=== PATIENT | female | born 1945 | race Caucasian/White ===

== ENCOUNTER 2019-08-06 10:17 | Inpatient (IN) ==
[2019-08-06] MEDS ORDERED: CeFAZolin Syr 2,000MG/20 ML 2,000 MG/20 ML SYRINGE IVPB ONE (11:56)
[2019-08-06] MEDS ORDERED: Ringers Solution, Lactated 1,000 ML IVC SCH (12:00)
[2019-08-06] MEDS ORDERED: Ondansetron 4 MG/2 ML VIAL IVP ONE (13:16)
[2019-08-06] MEDS ORDERED: *HR* HYDROmorphone (PF) 1 MG/ML SYRINGE IVP PRN (13:16)
[2019-08-06] MEDS ORDERED: *HR* OxyCODONE ER (12 HR) 10 MG TABLET PO ONE (13:17)
[2019-08-06] MEDS ORDERED: Gabapentin 300 MG CAPSULE PO ONE (13:17)
[2019-08-06] MEDS ORDERED: *HR* Propofol 200 MG/20 ML VIAL IVP ONE (13:39)
[2019-08-06] MEDS ORDERED: *HR* FentaNYL (PF) 100 MCG/2 ML VIAL ONE ×2 (13:39→16:08)
[2019-08-06] MEDS ORDERED: Lidocaine -MPF 2% 2 ML VIAL ONE (13:51)
[2019-08-06] MEDS ORDERED: *HR* Succinylcholine 200 MG/10 ML VIAL IVP ONE (13:52)
[2019-08-06] MEDS ORDERED: *HR* Rocuronium Bromide 50 MG/5 ML VIAL ONE (13:52)
[2019-08-06] MEDS ORDERED: EPHEDrine 50 MG/ML VIAL ONE (14:49)
[2019-08-06] MEDS ORDERED: Ethanol\\Acetic Acid\\Na Ace\\Ben 1,000 ML IRRIG.SOLN IR ONE (14:53)
[2019-08-06] MEDS ORDERED: Calcium Gluconate 1,000 MG/10 ML VIAL ONE (15:18)
[2019-08-06] MEDS ORDERED: Tranexamic Acid 1,000 MG/10 ML VIAL ONE (15:34)
[2019-08-06] MEDS ORDERED: *HR* PHENYLEPHRINE 1,000 MCG/10 ML SYRINGE IVP ONE ×2 (15:36→15:50)
[2019-08-06] MEDS ORDERED: *HR* Magnesium Sulfate 1 GM/2 ML VIAL ONE (15:39)
[2019-08-06] MEDS ORDERED: Ondansetron 4 MG/2 ML VIAL ONE (16:04)
[2019-08-06] MEDS ORDERED: Dexamethasone 4 MG/ML VIAL ONE (16:04)
[2019-08-06] MEDS ORDERED: Albumin Human 5% 0 GM/0 ML VIAL ONE (16:24)
[2019-08-06 17:35] LABS: Hematocrit 25.7 % (35.3-44.9); Hemoglobin 9.1 g/dL (11.5-15.4)
[2019-08-06] MEDS ORDERED: Ibuprofen 800 MG TABLET PO PRN (18:16)
[2019-08-06] MEDS ORDERED: Naloxone 0.4 MG/ML INJ IVP PRN (18:16)
[2019-08-06] MEDS ORDERED: MOM Conc 10 ML UD.LIQ PO PRN (18:16)
[2019-08-06] MEDS ORDERED: Sennosides 8.6 MG TABLET PO PRN (18:16)
[2019-08-06] MEDS ORDERED: Ondansetron 4 MG/2 ML VIAL IVP PRN (18:16)
[2019-08-06] MEDS ORDERED: *HR* Promethazine 25 MG/ML VIAL IVP PRN (18:16)
[2019-08-06] MEDS ORDERED: *HR* OxyCODONE Immed Rel 5 MG TABLET PO PRN (18:16)
[2019-08-06] MEDS ORDERED: traMADol 50 MG TABLET PO PRN (18:16)
[2019-08-06] MEDS ORDERED: Temazepam 15 MG CAPSULE PO PRN (18:16)
[2019-08-06] MEDS: HYDROcodone BIT/Homatropine 5 MG TABLET PO PRN (18:34)
[2019-08-06] MEDS: Ringers Solution, Lactated 1,000 ML IVC SCH (18:59)
[2019-08-06] MEDS: Ascorbic Acid 500 MG TABLET PO SCH (19:00)
[2019-08-07] MEDS: Ringers Solution, Lactated 1,000 ML IVC SCH (05:09)
[2019-08-07] MEDS: Ascorbic Acid 500 MG TABLET PO SCH ×2 (08:34→16:17)
[2019-08-07] MEDS: Metoprolol XL (24 HR) Succ 50 MG TAB.ER.24H PO SCH (08:34)
[2019-08-07] MEDS: Multivit/Ca/Min/Fe/FA 1 TAB TABLET PO SCH (08:34)
[2019-08-07] MEDS: hydroCHLOROthiazide 25 MG TABLET PO SCH (08:34)
[2019-08-07] MEDS: Aspirin Enteric Coated 81 MG Tablet PO SCH (08:34)
[2019-08-07] MEDS: Cholecalciferol (D-3) 1,000 UNIT (25MCG) TABLET PO SCH (08:35)
[2019-08-07] MEDS ORDERED: NON-FORMULARY MEDICATION 1 EACH EACH (Multivitamin [Daily Multiple Vitamin] 1 TAB) PO SCH (09:00)
[2019-08-07] MEDS ORDERED: MAGNESIUM AMINO ACID CHELATE PO SCH (09:00)
[2019-08-07] MEDS: NIFEdipine XL (24 HR) 30 MG TAB.ER.24 PO SCH (09:28)
[2019-08-07] MEDS ORDERED: *HR* Enoxaparin 30 MG/0.3 ML SYRINGE SQ SCH (12:32)
[2019-08-07 14:42] LABS: Basophils % 0.1 %; Eosinophils % 0.1 %; Hematocrit 22.1 % (35.3-44.9); Hemoglobin 7.4 g/dL (11.5-15.4); Immature Granulocytes % 0.6 % (0-4); Lymphocytes # 0.6 K/mcL (0.6-4.6); Lymphocytes % 4.7 %; Mean Corpuscular HGB Conc 33.5 g/dL (31.6-35.5); Mean Corpuscular Hemoglobin 31.1 pg (28.0-33.3); Mean Corpuscular Volume 92.9 fL (83.0-100.0); Mean Platelet Volume 9.3 fL (9.4-12.4); Monocytes # 0.6 K/mcL (0.0-1.3); Monocytes % 4.1 %; Neutrophils # 12.4 K/mcL (1.6-8.9); Platelet Count 193 K/mcL (140-400); Red Blood Count 2.38 M/mcL (3.82-4.97); Segmented Neutrophils % 90.4 %; White Blood Count 13.7 K/mcL (4.3-11.1)
[2019-08-07 15:04] LABS: Calcium 8.9 mg/dL (8.6-10.3); Potassium 3.5 mEq/L (3.5-5.1)
[2019-08-07] MEDS ORDERED: Furosemide 20 MG/2 ML VIAL IVP ONE (17:09)
[2019-08-07] MEDS ORDERED: 0.9 % Sodium Chloride 250 ML IVC SCH (17:15)
[2019-08-07] MEDS: HYDROcodone BIT/Homatropine 5 MG TABLET PO PRN (23:24)
[2019-08-08 05:51] LABS: Basophils % 0.3 %; Eosinophils # 0.1 K/mcL (0.0-0.6); Eosinophils % 1.1 %; Hematocrit 25.9 % (35.3-44.9); Hemoglobin 8.9 g/dL (11.5-15.4); Lymphocytes # 0.9 K/mcL (0.6-4.6); Lymphocytes % 12.3 %; Mean Corpuscular HGB Conc 34.4 g/dL (31.6-35.5); Mean Corpuscular Hemoglobin 30.6 pg (28.0-33.3); Mean Platelet Volume 8.9 fL (9.4-12.4); Monocytes # 0.5 K/mcL (0.0-1.3); Monocytes % 6.8 %; Neutrophils # 5.6 K/mcL (1.6-8.9); Platelet Count 142 K/mcL (140-400); Red Blood Count 2.91 M/mcL (3.82-4.97); Red Cell Distribution Width 13.5 % (11.5-14.5); Segmented Neutrophils % 78.5 %; White Blood Count 7.2 K/mcL (4.3-11.1)
[2019-08-08 06:14] LABS: Calcium 8.7 mg/dL (8.6-10.3); Potassium 3.4 mEq/L (3.5-5.1)
[2019-08-08] MEDS: Metoprolol XL (24 HR) Succ 50 MG TAB.ER.24H PO SCH (07:21)
[2019-08-08] MEDS: NIFEdipine XL (24 HR) 30 MG TAB.ER.24 PO SCH (07:21)
[2019-08-08] MEDS: Multivit/Ca/Min/Fe/FA 1 TAB TABLET PO SCH (07:21)
[2019-08-08] MEDS: Ascorbic Acid 500 MG TABLET PO SCH ×2 (07:22→15:47)
[2019-08-08] MEDS: Cholecalciferol (D-3) 1,000 UNIT (25MCG) TABLET PO SCH (07:22)
[2019-08-08] MEDS: hydroCHLOROthiazide 25 MG TABLET PO SCH (07:22)
[2019-08-08] MEDS: Aspirin Enteric Coated 81 MG Tablet PO SCH (07:22)
[2019-08-08] MEDS: HYDROcodone BIT/Homatropine 5 MG TABLET PO PRN (14:13)
[2019-08-09 04:19] LABS: Hematocrit 24.3 % (35.3-44.9); Hemoglobin 8.7 g/dL (11.5-15.4); Mean Corpuscular HGB Conc 35.8 g/dL (31.6-35.5); Mean Corpuscular Hemoglobin 30.6 pg (28.0-33.3); Mean Corpuscular Volume 85.6 fL (83.0-100.0); Platelet Count 153 K/mcL (140-400); Red Blood Count 2.84 M/mcL (3.82-4.97); Red Cell Distribution Width 13.3 % (11.5-14.5)
[2019-08-09 04:37] LABS: BUN/Creatinine Ratio 22 (6-26); Blood Urea Nitrogen 17 mg/dL (8-23); Calcium 8.6 mg/dL (8.6-10.3); Carbon Dioxide 24 mEq/L (23-29); Chloride 91 mEq/L (98-107); Glucose 110 mg/dL (70-105); Osmolality,Calculated 258 (280-300); Potassium 2.9 mEq/L (3.5-5.1); Sodium 123 mEq/L (136-145); eGFR For African Americans > 60 (> 60); eGFR For Non-African Americans > 60 (> 60)
[2019-08-09] MEDS: hydroCHLOROthiazide 25 MG TABLET PO SCH (08:48)
[2019-08-09] MEDS: Multivit/Ca/Min/Fe/FA 1 TAB TABLET PO SCH (08:48)
[2019-08-09] MEDS: Metoprolol XL (24 HR) Succ 50 MG TAB.ER.24H PO SCH (08:48)
[2019-08-09] MEDS: Aspirin Enteric Coated 81 MG Tablet PO SCH (08:49)
[2019-08-09] MEDS: Cholecalciferol (D-3) 1,000 UNIT (25MCG) TABLET PO SCH (08:49)
[2019-08-09] MEDS: Ascorbic Acid 500 MG TABLET PO SCH ×2 (08:49→17:56)
[2019-08-09] MEDS: NIFEdipine XL (24 HR) 30 MG TAB.ER.24 PO SCH (08:49)
[2019-08-09 09:21] LABS: Magnesium 1.5 mg/dL (1.6-2.6)
[2019-08-09 12:07] LABS: Bilirubin,Urine Negative (Negative); Blood,Urine Negative (Negative); Clarity,Urine Clear (Clear); Color,Urine Yellow (Yellow); Glucose,Urine (UA) Normal (Normal); Ketones,Urine Negative (Negative); Leukocyte Esterase,Urine Trace (Negative); Nitrite,Urine Negative (Negative); PH,Urine 6.5 pH Units (5.0-8.0); Protein,Urine Negative (Neg-Trace); Specific Gravity,Urine 1.022 (1.010-1.025); Urobilinogen,Urine Normal (Normal)
[2019-08-09 12:09] LABS: Potassium,Urine 78.1 mEq/L; Sodium, Urine 36.2 mEq/L
[2019-08-09 12:10] LABS: Bacteria,Urine None Seen per hpf (None-Few); Hyaline Casts,Urine None Seen per lpf (None-Few); RBC,Urine 0-3 per hpf (0-3); Squamous Epithelial Cell,Urine Many per lpf (None-Few); WBC,Urine 0-3 per hpf (0-3)
[2019-08-09] MEDS: Magnesium Oxide 400 MG TABLET PO SCH (13:03)
[2019-08-09 14:50] LABS: Basophils % 0.3 %; Eosinophils # 0.1 K/mcL (0.0-0.6); Eosinophils % 1.6 %; Hematocrit 25.9 % (35.3-44.9); Hemoglobin 9.1 g/dL (11.5-15.4); Immature Granulocytes % 0.4 % (0-4); Lymphocytes # 0.8 K/mcL (0.6-4.6); Lymphocytes % 10.9 %; Mean Corpuscular HGB Conc 35.1 g/dL (31.6-35.5); Mean Corpuscular Hemoglobin 31.2 pg (28.0-33.3); Mean Corpuscular Volume 88.7 fL (83.0-100.0); Monocytes # 0.3 K/mcL (0.0-1.3); Neutrophils # 5.9 K/mcL (1.6-8.9); Platelet Count 161 K/mcL (140-400); Red Blood Count 2.92 M/mcL (3.82-4.97); Red Cell Distribution Width 13.2 % (11.5-14.5); Segmented Neutrophils % 82.8 %; White Blood Count 7.1 K/mcL (4.3-11.1)
[2019-08-09 15:04] LABS: Alanine Aminotransferase 8 Units/L (7-52); Albumin 3.5 g/dL (3.5-5.7); Albumin/Globulin Ratio 1.3 (1.1-2.2); Alkaline Phosphatase 64 Units/L (34-104); Aspartate Amino Transferase 25 Units/L (13-39); BUN/Creatinine Ratio 21 (6-26); Bilirubin,Total 0.6 mg/dL (0.3-1.0); Blood Urea Nitrogen 16 mg/dL (8-23); Carbon Dioxide 26 mEq/L (23-29); Chloride 89 mEq/L (98-107); Globulin 2.6 g/dL (2.4-3.5); Glucose 177 mg/dL (70-105); Osmolality,Calculated 262 (280-300); Potassium 2.9 mEq/L (3.5-5.1); Sodium 123 mEq/L (136-145); Total Protein 6.1 g/dL (6.4-8.9); eGFR For African Americans > 60 (> 60); eGFR For Non-African Americans > 60 (> 60)
[2019-08-09 19:56] LABS: Sodium, Urine 50.7 mEq/L
[2019-08-10 06:39] VITALS: BP 127/83
[2019-08-10 07:36] LABS: BUN/Creatinine Ratio 17 (6-26); Blood Urea Nitrogen 12 mg/dL (8-23); Calcium 8.8 mg/dL (8.6-10.3); Carbon Dioxide 26 mEq/L (23-29); Chloride 90 mEq/L (98-107); Glucose 103 mg/dL (70-105); Magnesium 1.6 mg/dL (1.6-2.6); Osmolality,Calculated 262 (280-300); Potassium 3.1 mEq/L (3.5-5.1); Sodium 126 mEq/L (136-145); eGFR For African Americans > 60 (> 60); eGFR For Non-African Americans > 60 (> 60)
[2019-08-10] MEDS: Magnesium Oxide 400 MG TABLET PO SCH (09:44)
[2019-08-10] MEDS: Aspirin Enteric Coated 81 MG Tablet PO SCH (09:44)
[2019-08-10] MEDS: Ascorbic Acid 500 MG TABLET PO SCH (09:44)
[2019-08-10] MEDS: Metoprolol XL (24 HR) Succ 50 MG TAB.ER.24H PO SCH (09:44)
[2019-08-10] MEDS: Multivit/Ca/Min/Fe/FA 1 TAB TABLET PO SCH (09:44)
[2019-08-10] MEDS: NIFEdipine XL (24 HR) 30 MG TAB.ER.24 PO SCH (09:44)
[2019-08-10] MEDS: Cholecalciferol (D-3) 1,000 UNIT (25MCG) TABLET PO SCH (09:44)
== END 2019-08-10 14:02 | DRG 470 ==
LOC: SAMDAY 10:17 → SUATTDRO 18:03 → 3NENU 18:03
PROVIDERS: ADMIT Orthopaedic Surgery; ATTEND Internal Medicine